=== PATIENT | female | born 1995 | race American Indian/Alaskan Native ===

== ENCOUNTER 2016-05-24 08:14 | Emergency (ER) | payer MEDICAID ==
[2016-05-24 08:43] LABS: Basophils % (Auto) 0.3 % (0.0-1.8); Eosinophils % (Auto) 1.2 % (0.0-4.3); Hematocrit 33.5 % (30.3-42.9); Hemoglobin 11.1 gm/dl (10.1-14.3); Mean Corpuscular HGB Conc 33 % (30-34); Mean Corpuscular Hemoglobin 30 pg (28-32); Mean Corpuscular Volume 91 fl (79-97); Platelet Count 321 K/mm3 (140-440); Red Blood Count 3.67 M/mm3 (3.65-5.03); Red Cell Distribution Width 15.7 % (13.2-15.2); White Blood Count 11.6 K/mm3 (4.5-11.0)
[2016-05-24 10:36] LABS: Bilirubin,Urine NEG (Negative); Blood,Urine MOD (Negative); Ketones,Urine NEG (Negative); Leukocyte Esterase,Urine TR (Negative); Mucus,Urine FEW /HPF; Nitrite,Urine NEG (Negative); Protein,Urine <15 mg/dL mg/dL (Negative); RBC,Urine < 1.0 /HPF (0.0-6.0); Urobilinogen,Urine < 2.0 mg/dL (<2.0)
[2016-05-24] MEDS ORDERED: TORADOL IM ONE ×2 (14:11→15:26)
--- NOTE | 2016-05-24 14:12 | Emergency Department Report ---
ED Female HPI - General Chief complaint: Vaginal Bleeding Stated complaint: ABNORMAL BLEEDING/PAIN Time Seen by Provider: 05/24/16 13:55 Source: patient Mode of arrival: Ambulatory Limitations: No Limitations - History of Present Illness Initial comments: This is a 21-year-old female. She is previously unknown to me. Has a past medical history of elevated cholesterol, and primary care doctor is at [facility]. Patient presents to the ER with 2 weeks of vaginal bleeding , abdominal pain and cramping since the weekend. The pain is suprapubic and in the left lower quadrant. It does not radiate anywhere. There is no nausea, vomiting or diarrhea. There are no fevers or chills. There is no chest pain or shortness of breath. No vaginal discharge. Patient reports sexual activity with one male partner, sporadic condom use. MD Complaint: vaginal bleeding, pelvic pain -: Gradual Location: suprapubic Radiation: suprapubic, LLQ Quality: cramping, sharp Consistency: intermittent Improves with: none Worsens with: none Are you Now?: No Associated Symptoms: vaginal bleeding, abdominal pain. denies: vaginal discharge, nausea/vomiting, fever/chills, headaches, loss of appetite, dysuria, hematuria, seizure, shortness of breath, syncope, weakness - Related Data Sexually active: Yes Previous Rx's Medication Instructions Recorded Last Taken Type Doxycycline [Vibramycin] 100 mg PO Q12HR #28 capsule 05/24/16 Unknown Rx Ketorolac [Toradol] 10 mg PO Q6H PRN #20 tablet 05/24/16 Unknown Rx Ondansetron [Zofran Odt] 4 mg PO QID PRN #20 tab.rapdis 05/24/16 Unknown Rx oxyCODONE [Roxicodone] 5 mg PO Q6HR PRN #15 tablet 05/24/16 Unknown Rx Allergies Allergy/AdvReac Type Severity Reaction Status Date / Time No Known Allergies Allergy Verified 05/24/16 08:17 ED Review of Systems ROS: Stated complaint: ABNORMAL BLEEDING/PAIN Other details as noted in HPI Constitutional: denies: malaise Eyes: denies: vision change ENT: denies: epistaxis Respiratory: denies: orthopnea Cardiovascular: denies: chest pain Gastrointestinal: abdominal pain Genitourinary: abnormal menses Musculoskeletal: denies: back pain Skin: denies: lesions Neurological: denies: weakness ED Past Medical Hx - Past Medical History Hx Hypertension: No Hx Heart Attack/AMI: No Hx Congestive Heart Failure: No Hx Diabetes: No Hx Deep Vein Thrombosis: No Hx Renal Disease: No Hx Sickle Cell Disease: No Hx Seizures: No Hx Asthma: No Hx COPD: No Hx HIV: No Additional medical history: high cholesterol - Surgical History Hx Cholecystectomy: Yes (2012) Additional Surgical History: [id number] - Social History Smoking Status: Current Every Day Smoker Substance Use Type: None - Medications Home Medications: Home Medications Medication Instructions Recorded Confirmed Last Taken Type Doxycycline [Vibramycin] 100 mg PO Q12HR #28 capsule 05/24/16 Unknown Rx Ketorolac [Toradol] 10 mg PO Q6H PRN #20 tablet 05/24/16 Unknown Rx Ondansetron [Zofran Odt] 4 mg PO QID PRN #20 tab.rapdis 05/24/16 Unknown Rx oxyCODONE [Roxicodone] 5 mg PO Q6HR PRN #15 tablet 05/24/16 Unknown Rx ED Physical Exam - General Limitations: No Limitations General appearance: alert, in no apparent distress - Head Head exam: Present: atraumatic, normocephalic - Eye Eye exam: Present: normal appearance, EOMI. Absent: nystagmus - ENT ENT exam: Present: normal exam, normal orophraynx, mucous membranes moist, normal external ear exam - Neck Neck exam: Present: normal inspection, full ROM. Absent: tenderness, meningismus - Respiratory Respiratory exam: Present: normal lung sounds bilaterally. Absent: respiratory distress, wheezes, rales, rhonchi, stridor, chest wall tenderness, accessory muscle use, decreased breath sounds, prolonged expiratory - Cardiovascular Cardiovascular Exam: Present: regular rate, normal rhythm, normal heart sounds. Absent: bradycardia, tachycardia, irregular rhythm, systolic murmur, diastolic murmur, rubs, gallop - GI/Abdominal GI/Abdominal exam: Present: soft, tenderness, normal bowel sounds, other ( suprapubic and left lower quadrant tenderness.). Absent: distended, guarding, rebound, rigid, pulsatile mass - External exam: Present: normal external exam Speculum exam: Present: normal speculum exam Bi-manual exam: Present: cervical motion tendernes, adnexal tenderness, uterine tenderness, other (escorted by MARLEN Cruz during pelvic exam) - Extremities Exam Extremities exam: Present: normal inspection, full ROM, normal capillary refill. Absent: tenderness, pedal edema, joint swelling, calf tenderness - Back Exam Back exam: Present: normal inspection, full ROM. Absent: tenderness, CVA tenderness (R), CVA tenderness (L), muscle spasm, paraspinal tenderness, vertebral tenderness - Neurological Exam Neurological exam: Present: alert, oriented X3, normal gait, other (Extraocular movements intact. Tongue midline. No facial droop. Facial sensation intact to light touch in the V1, V2, V3 distribution bilaterally. 5 and 5 strength in 4 extremities.. Sensation is intact to light touch in 4 extremities.). Absent : motor sensory deficit - Psychiatric Psychiatric exam: Present: normal affect, normal mood - Skin Skin exam: Present: warm, dry, intact, normal color. Absent: rash ED Course Vital Signs 05/24/16 05/24/16 08:15 15:41 Temperature 98.3 F Pulse Rate 75 66 Respiratory 16 18 Rate Blood Pressure 119/73 Blood Pressure 101/62 [Right] O2 Sat by Pulse 100 97 Oximetry - Reevaluation(s) Reevaluation #1: 05/24/16 14:23 Differential diagnosis: Pelvic inflammatory disease, urinary tract infection, dysfunctional uterine bleeding, ovarian cyst, ovarian torsion Assessment and plan: 21-year-old female with vaginal bleeding, cramps, suprapubic and left lower quadrant pain. Somewhat tender. Bleeding has been going on for 2 weeks, pain started over the weekend. I think ovarian torsion is unlikely, but we will perform gynecologic examination, give pain medication, and obtain formal pelvic ultrasound. Reassess after ultrasound has resulted. She is not . Reevaluation #2: 05/24/16 16:03 Ultrasound negative for acute disease. No bleeding noted on the gynecologic examination. Patient has cervical motion tenderness, bilateral adnexal tenderness. She'll be treated for pelvic inflammatory disease. Appropriate counseling was given to the patient. ED Medical Decision Making - Lab Data Result diagrams: 05/24/16 08:33 Vital Signs 05/24/16 08:15 Temperature 98.3 F Pulse Rate 75 Respiratory 16 Rate Blood Pressure 119/73 O2 Sat by Pulse 100 Oximetry Lab Results 05/24/16 05/24/16 05/24/16 Range/Units 08:33 08:33 10:12 WBC 11.6 H (4.5-11.0) K/mm3 RBC 3.67 (3.65-5.03) M/mm3 Hgb 11.1 (10.1-14.3) gm/dl Hct 33.5 (30.3-42.9) % MCV 91 (79-97) fl MCH 30 (28-32) pg MCHC 33 (30-34) % RDW 15.7 H (13.2-15.2) % Plt Count 321 (140-440) K/mm3 Lymph % (Auto) 11.8 L (13.4-35.0) % [place] % (Auto) 6.7 (0.0-7.3) % Eos % (Auto) 1.2 (0.0-4.3) % Baso % (Auto) 0.3 (0.0-1.8) % Lymph # 1.4 (1.2-5.4) K/mm3 [place] # 0.8 (0.0-0.8) K/mm3 Eos # 0.1 (0.0-0.4) K/mm3 Baso # 0.0 (0.0-0.1) K/mm3 Seg Neutrophils % 80.0 H (40.0-70.0) % Seg Neutrophils # 9.2 H (1.8-7.7) K/mm3 HCG, Qual Negative (Negative) Urine Color Yellow (Yellow) Urine Turbidity Clear (Clear) Urine pH 6.0 (5.0-7.0) Ur Specific [place] 1.015 (1.003-1.030) Urine Protein <15 mg/dl (Negative) mg/dL Urine Glucose (UA) Neg (Negative) mg/dL Urine Ketones Neg (Negative) mg/dL Urine Blood Mod (Negative) Urine Nitrite Neg (Negative) Urine Bilirubin Neg (Negative) Urine Urobilinogen < 2.0 (<2.0) mg/dL Ur Leukocyte Esterase Tr (Negative) Urine WBC (Auto) 1.0 (0.0-6.0) /HPF Urine RBC (Auto) < 1.0 (0.0-6.0) /HPF U Epithel Cells (Auto) 3.0 (0-13.0) /HPF Urine Mucus Few /HPF - Radiology Data Radiology results: pending, report reviewed, image reviewed Ultrasound negative for acute disease, torsion Critical care attestation.: If time is entered above; I have spent that time in minutes in the direct care of this critically ill patient, excluding procedure time. ED Disposition Clinical Impression: Pelvic pain Disposition: DISCHARGED TO HOME OR SELFCARE Is pt being admited?: No Does the pt Need Aspirin: No Condition: Stable Instructions: Pelvic Inflammatory Disease (ED) Additional Instructions: Take the pain medications as directed. Follow up with an [facility] doctor within the next week to 2 weeks. Cultures were sent today, results of the available in the next 3-5 days. Please have a primary care doctor contact the medical records department to obtain culture results. I have listed numerous names, addresses, phone numbers, of local gynecology specialist. Please return to the ER right away with new pain, worsened pain, migration of pain, fevers or chills, nausea or vomiting, inability to tolerate liquid feeds. As we discussed, your laboratory studies appeared to be within normal limits. You are not . in addition, your pelvic ultrasound was within normal limits. Given all this, you'll be treated empirically for disease called pelvic inflammatory disease. We typically treat young females with unexplained lower abdominal pain to protect your ability to have children safely in the future. Cultures were sent today, and results will be available next 3-5 days. Please have your primary care doctor call the medical records department to obtain your culture results. Take the antibiotic therapy as directed. Take the nausea medication and pain medication as directed. I recommend outpatient testing for sexually transmitted diseases, including hepatitis, syphilis and HIV. I also recommend that you abstain from sexual activity until you have completed her antibiotic therapy, a physician states that it is safe for you to resume sexual activity, and any partners that you have been sexually active with have been tested/ treated/evaluated for sexual transmitted diseases. Please follow-up with physician within 3-5 days. I recommend that you return to the ER right away with worsening pain, migration of pain, intractable nausea/vomiting, inability tolerate liquid feeds. Prescriptions: Ketorolac [Toradol] 10 mg PO Q6H PRN #20 tablet PRN Reason: Pain Referrals: PRIMARY CAREMD [Primary Care Provider] - 3-5 Days [facility] [Provider Group] - 3-5 Days [facility] [Provider Group] - 3-5 Days [facility] [Provider Group] - 3-5 Days
--- NOTE | 2016-05-24 15:08 | Ultrasound Report ---
ULTRASOUND PELVIC DUPLEX DOPPLER COMPLETE ULTRASOUND TRANSVAGINAL HISTORY: pelvic pain, vaginal bleeding. TECHNIQUE: Transabdominal and transvaginal ultrasound with color and spectral doppler interrogation. Longitudinal and transverse real-time images of the pelvis demonstrate that the uterus and ovaries are present and in a normal location. They are of normal echogenicity, contour and size. No pathologic changes in the adjacent tissues are noted. Spectral waveforms demonstrate arterial flow to both ovaries. IMPRESSION: Unremarkable transabdominal and transvaginal pelvic ultrasounds.
[2016-05-24] MEDS ORDERED: TORADOL ONE (15:23)
[2016-05-24 15:42] VITALS: BP 101/62
[2016-05-24] MEDS ORDERED: ROCEPHIN IM ONE (16:01)
[2016-05-24] MEDS ORDERED: XYLOCAINE 1% MPF 5 mL INFILTRATI ONE (16:01)
[2016-05-24] MEDS ORDERED: VIBRAMYCIN PO ONE (16:01)
== END 2016-05-24 16:47 | disposition home or self-care (01) ==
LOC: ED 08:14
DX: R10.2 Pelvic and perineal pain (principal); F17.200 Nicotine dependence, unspecified, uncomplicated
CPT/HCPCS: 36415; 76830; 81001; 84703; 85025; 87591; 93975; 96372; 99284; J0696; J1885

== ENCOUNTER 2017-04-02 14:30 | Outpatient (CLI) | payer MEDICAID ==
[2017-04-02 15:04] VITALS: BP 107/62
[2017-04-02] MEDS ORDERED: LACTATED RINGERS 1,000 ML IV SCH (16:00)
== END 2017-04-02 17:30 | disposition home or self-care (01) ==
LOC: TRG 14:30
PROVIDERS: ATTEND Obstetrics & Gynecology Gynecology
DX: O47.1 False labor at or after 37 completed weeks of gestation (principal); Z3A.38 38 weeks gestation of pregnancy
CPT/HCPCS: 59025

== ENCOUNTER 2017-04-05 15:50 | Outpatient (CLI) | payer MEDICAID ==
[2017-04-05 18:19] VITALS: BP 115/63
--- NOTE | 2017-04-05 18:21 | Ultrasound Report ---
FINAL REPORT EXAM: US OB BPP WO NON-STRESS HISTORY: tachycardia , clinical gestational age 38 weeks 6 days TECHNIQUE: Ultrasound examination of the gravid uterus for biophysical profile evaluation of the fetus PRIORS: None. FINDINGS: There is a single viable intrauterine with documented cardiac activity. The amniotic fluid volume is normal. heart rate: 145 bpm Amniotic fluid maximum vertical pocket: 6 cm Evaluation for biophysical profile yields the following score as reported by technologist from real-time exam: respiratory motion (minimum one episode): 0 Gross body movement (minimum 3 movements): 2 tone (minimum one flexion and extension): 2 Amniotic fluid volume (at least 2 cm pocket in vertical diameter): 2 IMPRESSION: Single viable intrauterine with 6/8 biophysical profile score during the sonographic evaluation, 0 points for breathing motion
--- NOTE | 2017-04-05 18:24 | Ultrasound Report ---
FINAL REPORT EXAM: US OB LIMITED HISTORY: krunal TECHNIQUE: Ultrasound evaluation of the gravid uterus PRIORS: Biophysical profile 04/05/2017 FINDINGS: position is cephalic. Visible portion of cervix appears closed. Amniotic fluid index normal at 14.1 cm. IMPRESSION: Normal amniotic fluid volume
== END 2017-04-05 19:21 | disposition home or self-care (01) ==
LOC: TRG 15:50
PROVIDERS: ATTEND Obstetrics & Gynecology
DX: O47.1 False labor at or after 37 completed weeks of gestation (principal); Z3A.38 38 weeks gestation of pregnancy
CPT/HCPCS: 59025; 76815; 76819

== ENCOUNTER 2017-04-17 21:32 | Outpatient (CLI) | payer MEDICAID ==
[2017-04-17 22:04] LABS: Bilirubin,Urine NEG (Negative); Blood,Urine NEG (Negative); Color,Urine Yellow (Yellow); Mucus,Urine 2+ /HPF; Nitrite,Urine NEG (Negative); Protein,Urine <15 mg/dL mg/dL (Negative)
[2017-04-17 23:21] VITALS: BP 100/58
== END 2017-04-17 23:35 | disposition home or self-care (01) ==
LOC: TRG 21:32
PROVIDERS: ATTEND Obstetrics & Gynecology
DX: O26.893 Other specified pregnancy related conditions, third trimester (principal); R51 Headache; O48.0 Post-term pregnancy; Z3A.40 40 weeks gestation of pregnancy
CPT/HCPCS: 59025; 81001

== ENCOUNTER 2017-04-20 20:31 | Inpatient (IN) | payer MEDICAID ==
--- NOTE | 2017-04-20 21:40 | History and Physical Report ---
History of Present Illness Date of examination: 04/20/17 Date of admission: 04/20/17 20:31 Chief complaint: Induction of labor History of present illness: Pt is a 22yo BF EDC 04/13/17; EGA 41 0/7 weeks presents for induction of labor due to postdates. She received care at [facility] since 11 weeks and course has been unremarkable except for STD's treated this . records are available and GBS is Negative. Past History Past Medical History: no pertinent history Past Surgical History: no surgical history MEDIA MONITOR History: chlamydia (treated), gonorrhea (treated) Social history: no significant social history, single - Obstetrical History Expected Date of Delivery: 04/13/17 Actual Gestation: 41 Week(s) 1 Day(s) : 2 Medications and Allergies Allergies Allergy/AdvReac Type Severity Reaction Status Date / Time No Known Allergies Allergy Verified 05/24/16 08:17 Home Medications Medication Instructions Recorded Confirmed Last Taken Type Doxycycline [Vibramycin] 100 mg PO Q12HR #28 capsule 05/24/16 Unknown Rx Ketorolac [Toradol] 10 mg PO Q6H PRN #20 tablet 05/24/16 Unknown Rx Ondansetron [Zofran Odt] 4 mg PO QID PRN #20 tab.rapdis 05/24/16 Unknown Rx oxyCODONE [Roxicodone] 5 mg PO Q6HR PRN #15 tablet 05/24/16 Unknown Rx Review of Systems All systems: negative - Vital Signs Vital signs: Vital Signs Pulse Pulse Ox 80 99 04/20/17 20:59 04/20/17 20:59 Temp Pulse Resp BP Pulse Ox 97.7 F 82 13 119/78 97 04/20/17 21:30 04/20/17 21:34 04/20/17 21:30 04/20/17 21:30 04/20/17 21:34 - Physical Exam Breasts: Positive: deferred Cardiovascular: Regular rate Lungs: Positive: Clear to auscultation Abdomen: Positive: normal appearance Genitourinary (Female): Positive: normal external genitalia Vagina: Positive: normal moisture Uterus: Positive: enlarged Extremities: Positive: normal - Obstetrical FHR: category 1 Uterine Contraction Monitor Mode: External Cervical Dilatation: 1 Cervical Effacement Percentage: 20 station: -3 Uterine Contraction Pattern: Regular Uterine Tone Measurement Phase: Contraction Uterine Contraction Intensity: Moderate Results Result Diagrams: 04/20/17 21:17 All other labs normal. Assessment and Plan - Patient Problems (1) 41 weeks gestation of Onset Date: 04/20/17 Current Visit: Yes Status: Acute Plan to address problem: A: IUP @ 41 0/7 weeks P: Admit to L&D for pitocin induction of labor Expectant vaginal delivery.
[2017-04-20] MEDS ORDERED: ZOFRAN IV PRN (21:45)
[2017-04-20] MEDS ORDERED: NARCAN 0.4 MG/1 ML IV PRN (21:45)
[2017-04-20] MEDS ORDERED: MINERAL OIL PO PRN (21:45)
[2017-04-20] MEDS ORDERED: PHENERGAN PO PRN (21:45)
[2017-04-20] MEDS ORDERED: ePHEDrine SULFATE IV PRN (21:45)
[2017-04-20] MEDS ORDERED: SUBLIMAZE IV PRN (21:45)
[2017-04-20] MEDS ORDERED: BRETHINE SUB-Q PRN (21:45)
[2017-04-20] MEDS ORDERED: STADOL IV PRN (21:45)
[2017-04-20] MEDS ORDERED: XYLOCAINE 2% INFILTRATI ONE (21:45)
[2017-04-20] MEDS ORDERED: BRETHINE IVP PRN (21:45)
[2017-04-20] MEDS ORDERED: PITOCin/NS 30 UNIT/500ML 30 UNITS/500 ML BAG IV SCH ×2 (22:00)
[2017-04-20] MEDS ORDERED: PITOCin/NS 20 UNIT/1000ML DRIP 20 UNITS/1,000 ML BAG IV SCH (22:00)
[2017-04-20 22:02] LABS: Hematocrit 31.2 % (30.3-42.9); Hemoglobin 10.7 gm/dl (10.1-14.3); Mean Corpuscular HGB Conc 34 % (30-34); Mean Corpuscular Hemoglobin 33 pg (28-32); Mean Corpuscular Volume 97 fl (79-97); Platelet Count 300 K/mm3 (140-440); Red Blood Count 3.22 M/mm3 (3.65-5.03); Red Cell Distribution Width 14.1 % (13.2-15.2)
[2017-04-20] MEDS: LACTATED RINGERS 1,000 ML IV SCH (22:20)
[2017-04-20] MEDS: SUBLIMAZE IV PRN (22:27)
[2017-04-21] MEDS: SUBLIMAZE IV PRN (01:08)
[2017-04-21] MEDS: LACTATED RINGERS 1,000 ML IV SCH (02:42)
[2017-04-21] MEDS ORDERED: ePHEDrine SULFATE IV PRN (03:44)
[2017-04-21] MEDS ORDERED: NARCAN 2 MG/2 ML IV PRN (03:44)
[2017-04-21] MEDS ORDERED: ZOFRAN IV PRN ×2 (03:44→04:24)
--- NOTE | 2017-04-21 03:46 | Anesthesia Consultation ---
Anesthesia Consult and Med Hx Date of service: 04/21/17 - Airway Anesthetic Teeth Evaluation: Good ROM Head & Neck: Adequate Mental/Hyoid Distance: Adequate Mallampati Class: Class II Intubation Access Assessment: Probably Good - Pulmonary Exam CTA: Yes - Cardiac Exam Cardiac Exam: RRR - Pre-Operative Health Status ASA Pre-Surgery Classification: ASA2 Proposed Anesthetic Plan: Epidural - Pulmonary Hx Asthma: No COPD: No Hx Pneumonia: No - Cardiovascular System Hx Hypertension: No Hx Coronary Artery Disease: No Hx Heart Attack/AMI: No Hx Angina: No - Central Nervous System Hx Seizures: No Hx Psychiatric Problems: No - Endocrine Hx Renal Disease: No Hx End Stage Renal Disease: No Hx Hypothyroidism: No Hx Hyperthyroidism: No - Hematic Hx Anemia: No Hx Sickle Cell Disease: No - Other Systems Hx Alcohol Use: No - Additional Comments Anesthesia Medical History Comments:
[2017-04-21] MEDS ORDERED: fentaNYL-BUPIV 2 MCG/ML-0.125% 200 MCG/100 ML BAG EPIDURAL SCH (04:00)
--- NOTE | 2017-04-21 04:23 | Procedure Note ---
OB Delivery Note - Delivery Date of Delivery: 04/21/17 Surgeon: ARUNA SERRANO Estimated blood loss: 200cc - Vaginal Delivery presentation: vertex Delivery position: OA Intrapartum events: meconium, extend. bradycardia Delivery induction: none Delivery augmentation: rupture of membranes Delivery monitor: external FHT, external uterine Route of delivery: vacuum extraction Indicators for instrumentation: nonreassuring FHR tracing Delivery placenta: spontaneous Delivery cord: 3 umbilical vessels Episiotomy: none Delivery laceration: 1st degree Delivery repair: vicryl Anesthesia: epidural Delivery comments: Infant delivered OA with the aid of a vacuum, 1 pull, no pop-offs, and handed to awaiting Peds/RT in attendance. - Infant A at 1 minute: 7 at 5 minutes: 9 Infant Gender: Male ([id number])
[2017-04-21] MEDS ORDERED: BENADRYL PO PRN (04:24)
[2017-04-21] MEDS ORDERED: DULCOLAX PR PRN (04:24)
[2017-04-21] MEDS ORDERED: PHENERGAN PO PRN (04:24)
[2017-04-21] MEDS ORDERED: PHENERGAN PR PRN (04:24)
[2017-04-21] MEDS ORDERED: MILK OF MAGNESIA PO PRN (04:24)
[2017-04-21] MEDS ORDERED: TUCKS PAD TP PRN (04:24)
[2017-04-21] MEDS ORDERED: TYLENOL PO PRN (04:24)
[2017-04-21] MEDS ORDERED: LANSINOH TP PRN (04:24)
[2017-04-21] MEDS ORDERED: PITOCin/NS 20 UNIT/1000ML DRIP 20 UNITS/1,000 ML BAG IV SCH (05:00)
[2017-04-21] MEDS ORDERED: SODIUM CHLORIDE FLUSH SYRINGE 10 ML IV NR (05:00)
[2017-04-21] MEDS: NORCO 5/325 PO PRN ×3 (05:34→21:08)
[2017-04-21] MEDS: MOTRIN PO SCH ×3 (08:30→17:45)
[2017-04-21] MEDS: PRENATAL VITAMIN PO SCH (10:51)
[2017-04-21] MEDS: FEOSOL PO SCH ×2 (10:51→22:31)
[2017-04-21] MEDS: COLACE PO SCH ×2 (10:51→22:31)
[2017-04-21] MEDS ORDERED: DERMOPLAST TP PRN (11:26)
[2017-04-21 16:57] LABS: Hematocrit 27.6 % (30.3-42.9); Hemoglobin 9.7 gm/dl (10.1-14.3)
[2017-04-22] MEDS: MOTRIN PO SCH ×4 (00:28→21:50)
[2017-04-22] MEDS: NORCO 5/325 PO PRN ×3 (05:17→20:03)
[2017-04-22] MEDS ORDERED: M-M-R II VACCINE SUB-Q ONE (06:00)
[2017-04-22] MEDS ORDERED: BOOSTRIX IM ONE (06:00)
--- NOTE | 2017-04-22 08:20 | Progress Note ---
Assessment and Plan - Patient Problems (1) 41 weeks gestation of Onset Date: 04/20/17 Current Visit: Yes Status: Resolved (2) (normal spontaneous vaginal delivery) Onset Date: 04/22/17 Current Visit: Yes Status: Resolved Plan to address problem: A: S/P - PPD #1 Doing well Asymptomatic anemia - stable P: May go home tomorrow. Subjective - Subjective Date of service: 04/22/17 Principal diagnosis: s/p - PPD #1 Interval history: Pt is feeling well without complaints. Bleeding improved. Patient reports: appetite normal, voiding normally, pain well controlled, ambulating normally [place]: doing well, nursing well, bottle feeding Objective - Vital Signs Latest vital signs: Vital Signs Temp Pulse Resp BP Pulse Ox 04/22/17 05:17 16 04/22/17 01:28 14 04/22/17 00:28 20 04/22/17 00:05 98.2 F 64 22 113/77 04/21/17 22:08 18 04/21/17 21:08 20 04/21/17 17:30 91 H 20 104/63 99 04/21/17 14:44 20 04/21/17 12:13 98.5 F 70 20 112/54 04/21/17 08:30 20 Intake and Output 04/21/17 04/22/17 04/22/17 22:59 06:59 14:59 Intake Total 540 240 Output Total 400 Balance 140 240 Intake: Oral 360 Intake, Free Water 180 240 Output: Urine 400 Void 400 Other: Total, Intake Amount 360 Total, Output Amount 400 # Voids Void 1 - Exam Breasts: Present: deferred Cardiovascular: Present: Regular rate Lungs: Present: Clear to auscultation Abdomen: Present: normal appearance, soft Uterus: Present: normal, firm, fundal height below umbilicus Extremities: Present: normal - Labs Labs: Abnormal lab results 04/21/17 Range/Units 16:40 Hgb 9.7 L (10.1-14.3) gm/dl Hct 27.6 L (30.3-42.9) % Laboratory Tests 04/20/17 04/20/17 04/20/17 21:17 21:17 21:17 WBC 10.3 RBC 3.22 L Hgb 10.7 Hct 31.2 MCV 97 MCH 33 H MCHC 34 RDW 14.1 Plt Count 300 RPR Nonreactive Blood Type A POSITIVE Antibody Screen Negative 04/21/17 16:40 WBC RBC Hgb 9.7 L Hct 27.6 L MCV MCH MCHC RDW Plt Count RPR Blood Type Antibody Screen
--- NOTE | 2017-04-22 08:56 | Discharge Summary ---
Providers - Providers Date of Admission: 04/20/17 20:31 Date of discharge: 04/23/17 Attending physician: ARUNA SERRANO Primary care physician: ARUNA SERRANO Hospitalization Reason for admission: induction of labor, IUP at term Delivery: Episiotomy: none Laceration: 1st degree Other procedures: none complications: none Discharge diagnosis: IUP at term delivered baby: male Hospital course: Unremarkable. Condition at discharge: Good Disposition: DC-01 TO HOME OR SELFCARE - Discharge Diagnoses (1) 41 weeks gestation of Status: Resolved (2) (normal spontaneous vaginal delivery) Status: Resolved Plan - Discharge Medications Prescriptions: Ferrous Sulfate [Feosol 325 MG tab] 325 mg PO BID #60 tablet HYDROcodone/APAP 5-325 [[place] 5-325 mg TAB] 1 each PO Q6H PRN #10 tablet PRN Reason: Pain, Moderate (4-6) Ibuprofen [Motrin 600 MG tab] 600 mg PO Q6H #30 tablet Vit-Fe Fumar-FA [ Vitamin] 1 each PO QDAY #30 tablet - Provider Discharge Summary Activity: routine, no sex for 6 weeks, no heavy lifting 4 weeks, no strenuous exercise Diet: routine Instructions: routine Additional instructions: [] Smoking cessation referral if applicable(refer to patient education folder for contact #) [] Refer to [facility] Booklet Call your doctor immediately for: * Fever > 100.5 * Heavy vaginal bleeding ( >1 pad per hour) * Severe persistent headache * Shortness of breath * Reddened, hot, painful area to leg or breast * Drainage or odor from incision. * Keep incision clean and dry at all times and follow doctor's instructions regarding bathing/showering - Follow up plan Follow up: ARUNA SERRANO MD [Primary Care Provider] - 6 Weeks
[2017-04-22] MEDS: COLACE PO SCH ×2 (10:07→22:22)
[2017-04-22] MEDS: PRENATAL VITAMIN PO SCH (10:07)
[2017-04-22] MEDS: FEOSOL PO SCH ×2 (10:07→22:22)
[2017-04-23] MEDS: MOTRIN PO SCH ×2 (00:11→05:30)
[2017-04-23] MEDS: NORCO 5/325 PO PRN ×2 (04:13→11:04)
[2017-04-23] MEDS ORDERED: BOOSTRIX IM ONE (06:15)
[2017-04-23 09:39] VITALS: BP 109/65
[2017-04-23] MEDS: COLACE PO SCH (11:03)
[2017-04-23] MEDS: PRENATAL VITAMIN PO SCH (11:04)
[2017-04-23] MEDS: FEOSOL PO SCH (11:04)
== END 2017-04-23 12:08 | disposition home or self-care (01) | DRG 775 ==
LOC: LD 20:31 → OB 04-21 08:01
PROVIDERS: ADMIT Obstetrics & Gynecology; ATTEND Obstetrics & Gynecology
PROC: 10D07Z6 Extraction of Products of Conception, Vacuum, Via Natural or Artificial Opening (ICD-10-PCS; principal; 2017-04-21)
PROC: 3E0R3BZ Introduction of Anesthetic Agent into Spinal Canal, Percutaneous Approach (ICD-10-PCS; 2017-04-21)
PROC: 00HU33Z Insertion of Infusion Device into Spinal Canal, Percutaneous Approach (ICD-10-PCS; 2017-04-21)
PROC: 0HQ9XZZ Repair Perineum Skin, External Approach (ICD-10-PCS; 2017-04-21)
PROC: 10907ZC Drainage of Amniotic Fluid, Therapeutic from Products of Conception, Via Natural or Artificial Opening (ICD-10-PCS; 2017-04-22)
PROC: 3E0234Z Introduction of Serum, Toxoid and Vaccine into Muscle, Percutaneous Approach (ICD-10-PCS; 2017-04-22)
DX: O48.0 Post-term pregnancy (principal); O70.0 First degree perineal laceration during delivery; O66.0 Obstructed labor due to shoulder dystocia; O77.0 Labor and delivery complicated by meconium in amniotic fluid; O76 Abnormality in fetal heart rate and rhythm complicating labor and delivery; O99.03 Anemia complicating the puerperium; D64.9 Anemia, unspecified; Z37.0 Single live birth; Z3A.41 41 weeks gestation of pregnancy; Z23 Encounter for immunization
CPT/HCPCS: 36415; 85014; 85018; 85027; 86592; 86850; 86900; 86901; 90707; 90715; 99211; A6250; G0463; J2590; J3010; J7120

== ENCOUNTER 2018-03-05 05:43 | Day surgery (SDC) | payer MEDICAID ==
[2018-03-05] MEDS ORDERED: LACTATED RINGERS 1,000 ML ONE (06:42)
[2018-03-05] MEDS ORDERED: NACL BACTERIOSTATIC INFILTRATI ONE (06:42)
--- NOTE | 2018-03-05 06:59 | Short Stay Summary ---
Short Stay Documentation Date of service: 03/05/18 Narrative H&P: Pt is a 22yo BF LMP 02/26/18 presents for permanent sterilization - History Principal diagnosis: Desires permanent sterilization H&P: obtained from office Past Medical History: No medical history Past Surgical History: No surgical history Social history: no significant social history, single - Allergies and Medications Current Medications: Allergies No Known Allergies Allergy (Verified 03/01/18 07:36) Home Medications Medication Instructions Recorded Confirmed Last Taken Type No Known Home Medications [No 03/01/18 03/01/18 Unknown History Reported Home Medications] Active Medications Lactated Ringer's (Lactated Ringers) 1,000 mls @ 100 mls/hr IV DIRECT LUIS ANGEL - Physical exam General appearance: no acute distress Integumentary: no rash HEENT: Atraumatic Lungs: Clear to auscultation Breasts: deferred Heart: Regular rate Gastrointestinal: normal Female Genitourinary: deferred Rectal Exam: deferred Extremities: no ischemia, No edema Neurological: Normal gait, Normal speech - Brief post op/procedure progress note Date of procedure: 03/05/18 Pre-op diagnosis: Desires permanent sterilization Post-op diagnosis: same Procedure: Laparoscopic bilateral tubal ligation Anesthesia: GETA Findings: A normal uterus with normal tubes and ovaries bilaterally Surgeon: ARUNA SERRANO Estimated blood loss: minimal Pathology: none Condition: stable - Hospital course Hospital course: Unremarkable. - Disposition Condition at discharge: Good Disposition: DC-01 TO HOME OR SELFCARE - Discharge Diagnoses (1) Encounter for sterilization Status: Resolved Short Stay Discharge Plan Activity: no restrictions Diet: regular Wound: open to air, keep clean and dry Follow up with: JASON ARANA MD [Primary Care Provider] - 7 Days ARUNA SERRANO MD [Staff Physician] - 14 Days Prescriptions: HYDROcodone/APAP 5-325 [[place] 5/325] 1 each PO Q6HR PRN #20 tablet PRN Reason: Pain
[2018-03-05] MEDS ORDERED: LACTATED RINGERS 1,000 ML IV SCH (07:00)
[2018-03-05] MEDS ORDERED: ANCEF/STERILE WATER 2 GM/20 ML 2 GM/20 ML SYRINGE IV NR (07:00)
[2018-03-05] MEDS ORDERED: VERSED ONE (07:03)
[2018-03-05 07:14] LABS: Hematocrit 34.5 % (30.3-42.9); Hemoglobin 11.8 gm/dl (10.1-14.3)
[2018-03-05] MEDS ORDERED: DIPRIVAN 10 MG/ML IV ONE (07:14)
[2018-03-05] MEDS ORDERED: MARCAINE 0.5% INFILTRATI ONE ×2 (07:14→07:57)
[2018-03-05] MEDS ORDERED: DILAUDID ONE (07:14)
[2018-03-05] MEDS ORDERED: QUELICIN ONE (07:16)
[2018-03-05] MEDS ORDERED: XYLOCAINE MPF 2% ONE (07:17)
[2018-03-05] MEDS ORDERED: ZEMURON IV ONE (07:17)
[2018-03-05] MEDS ORDERED: DECADRON ONE (07:44)
[2018-03-05] MEDS ORDERED: ZOFRAN ONE (07:44)
[2018-03-05] MEDS ORDERED: ROBINUL ONE (07:56)
[2018-03-05] MEDS ORDERED: BLOXIVERZ ONE (07:56)
[2018-03-05] MEDS ORDERED: NACL 0.9% IR ONE (07:58)
[2018-03-05] MEDS ORDERED: TORADOL ONE (08:06)
--- NOTE | 2018-03-05 08:11 | Anesthesia Day of Surgery ---
Anesthesia Day of Surgery - Day of Surgery Patient Examined: Yes Patient H&P Reviewed: Yes Patient is NPO: Yes
[2018-03-05] MEDS ORDERED: DILAUDID IV PRN (08:12)
[2018-03-05] MEDS ORDERED: ZOFRAN IV PRN (08:12)
--- NOTE | 2018-03-05 08:12 | Anesthesia Consultation ---
Anesthesia Consult and Med Hx Date of service: 03/05/18 - Airway Anesthetic Teeth Evaluation: Good ROM Head & Neck: Adequate Mental/Hyoid Distance: Adequate Mallampati Class: Class I Intubation Access Assessment: Good - Pulmonary Exam CTA: Yes - Cardiac Exam Cardiac Exam: RRR - Pre-Operative Health Status ASA Pre-Surgery Classification: ASA1 Proposed Anesthetic Plan: General - Pulmonary Hx Smoking: Yes Hx Asthma: No COPD: No Hx Pneumonia: No - Cardiovascular System Hx Hypertension: No Hx Coronary Artery Disease: No Hx Heart Attack/AMI: No Hx Angina: No - Central Nervous System Hx Seizures: No Hx Psychiatric Problems: Yes - Endocrine Hx Renal Disease: No Hx End Stage Renal Disease: No Hx Hypothyroidism: No Hx Hyperthyroidism: No - Hematic Hx Anemia: No Hx Sickle Cell Disease: No - Other Systems Hx Alcohol Use: Yes (Occas) Hx Cancer: No
--- NOTE | 2018-03-05 08:19 | Operative Report ---
Operative Report Operative Report: PREOPERATIVE DIAGNOSIS: Desires permanent sterilization POSTOPERATIVE DIAGNOSIS: Same OPERATIVE PROCEDURE: Laparoscopic bilateral tubal ligation. SURGEON: Silas Sánchez MD ANESTHESIA: Gen. endotracheal intubation ANESTHESIOLOGIST: Dr. Whitaker ESTIMATED BLOOD LOSS: Minimal FINDINGS: A normal uterus with normal tubes and ovaries bilaterally COMPLICATIONS: None COUNTS: Correct x3. PROCEDURE: After the patient was correctly identified and after general anesthesia was administered, the patient was prepped and draped in usual sterile fashion and placed in dorsal lithotomy position. First, the bladder was emptied using a straight catheter. Next, a speculum was placed in the vaginal vault and the anterior lip of the cervix was grasped using a single-tooth tenaculum. The uterine manipulator was then placed and the tenaculum and speculum were removed. Attention was then turned to the abdomen where first a periumbilical incision was made using a skin knife, and the Optiview trocar was inserted under direct visualization. After an adequate amount of abdominal insufflation, visualiza tion of the pelvic organs found the uterus to be normal, and the tubes and ovaries to be normal bilaterally. Next, the left fallopian tube was grasped using the [employer] fusion device, and after identifying the fimbriated end of the left tube, this tube was cauterized in 3 continuous places along the proximal portion of the left tube. The same procedure was performed on the right fallopian tube after first identifying the fimbriated end of the right tube. This tube was also cauterized in 3 continuous places along the proximal portion of the right tube. At this point, the procedure was then considered complete. All instruments were removed from the abdomen. The abdomen was deflated and the periumbilical incision was closed using 0 Vicryl suture in a [id number] configuration on the fascia, followed by 4-0 Monocryl suture in sub-cuticular fashion on the skin. The incision was also infiltrated using 0.5% Marcaine solution. The uterine manipulator was removed. The patient tolerated the procedure well and was transferred to recovery room stable condition.
[2018-03-05] MEDS ORDERED: NORCO 5/325 PO PRN (08:36)
[2018-03-05] MEDS ORDERED: NORCO 5/325 ONE (08:43)
[2018-03-05 10:18] VITALS: BP 127/77
--- NOTE | 2018-03-05 10:21 | Post Anesthesia Evaluation ---
- Post Anesthesia Evaluation Patient Participated: Yes Airway Patent: Yes Stable Respiratory Function: Yes Nausea/Vomiting: Yes Temp > 96.8F: Yes Pain Manageable: Yes Adequeate Hydration: Yes Anesthesia Complications: No
== END 2018-03-05 10:15 | disposition home or self-care (01) ==
LOC: OR 05:43
PROVIDERS: ATTEND Obstetrics & Gynecology
DX: Z30.2 Encounter for sterilization (principal); F17.210 Nicotine dependence, cigarettes, uncomplicated; G43.909 Migraine, unspecified, not intractable, without status migrainosus; F32.9 Major depressive disorder, single episode, unspecified; F41.9 Anxiety disorder, unspecified; Z72.89 Other problems related to lifestyle; Z98.890 Other specified postprocedural states; Z79.899 Other long term (current) drug therapy; Z90.49 Acquired absence of other specified parts of digestive tract; Z80.3 Family history of malignant neoplasm of breast; Z82.49 Family history of ischemic heart disease and other diseases of the circulatory system
CPT/HCPCS: 36415; 58670; 81025; 85014; 85018; J0330; J0690; J1100; J1170; J1885; J2250; J2405; J2704; J2710; J7120